=== PATIENT | female | born 1980 | race Caucasian/White ===

== ENCOUNTER 2023-11-11 06:48 | Emergency (ER) | payer OTHER, SELFPAY ==
[2023-11-11 06:49] VITALS: BP 127/86; PULSE 86; RESP 16; TEMP 36.6; O2SAT 97; BMI 30.5
[2023-11-11 07:00] VITALS: BP 136/87; PULSE 84; O2SAT 97
--- NOTE | 2023-11-11 07:09 | XR_ITS ---
PROCEDURE INFORMATION: Exam: XR Chest Exam date and time: 11/11/2023 7:54 AM Age: 43 years old Clinical indication: Cough and wheezing; Additional info: Diffuse wheezing, fevers productive cough. Congestion x 2 days TECHNIQUE: Imaging protocol: Radiologic exam of the chest. Views: 2 views. COMPARISON: No relevant prior studies available. FINDINGS: Lungs: Mild opacities in the left upper lobe Pleural spaces: Unremarkable. No pleural effusion. No pneumothorax. Heart/Mediastinum: Unremarkable. No cardiomegaly. Bones/joints: Unremarkable. IMPRESSION: Mild opacities in the left upper lobe may represent atelectasis or pneumonia Recommend followup studies to document resolution and rule out neoplastic process
--- NOTE | 2023-11-11 07:13 | ED_ITS ---
Discharge Plan Disposition Patient Disposition: Home, Self-Care Prescriptions Prescriptions: New prednisone 20 mg tablet 40 mg PO DAILY 5 Days Qty: 10 0RF amoxicillin-pot clavulanate 875-125 mg tablet 1 tab PO BID 5 Days Qty: 10 0RF Referrals Follow up/Referrals: Vivek Joshi MD [Primary Care Provider] - See instructions Activity Restrictions/Add. Instructions Additional Instructions/Restrictions: Call your family doctor to establish care for this visit to the emergency department and schedule follow-up within 48 hours to ensure improvement. If you have any worsening of your condition or any other concerning signs or symptoms, return to the emergency department or your primary care doctor for further evaluation. Augmentin twice daily for 5 days. Prednisone once daily every morning with plenty of food and water for the next 5 days as well. Clinical Impressions Clinical Impression: Acute exacerbation of chronic obstructive pulmonary disease Discharge ED Provider: Te Rose General Adult HPI General Chief complaint: Upper Respiratory Infection Stated complaint: congestion, fever, diarrhea Time Seen by Provider: 11/11/23 06:56 Mode of Arrival: Ambulatory Source of Information: Patient Limitations: No Limitations Description of Symptoms (Recalled from ER Triage Doc. by RN): pt c/o conges tion,fever,chills that started yesterday History of Present Illness HPI narrative: 43-year-old female with history of COPD still currently smoking presenting with fever and productive cough. Started 2 days prior to this visit. Has numerous sick contacts. Tmax 100 ?F. Cough productive of yellow sputum. No body aches, nausea, vomiting, but she has had associated diarrhea. No associated chest pain, or shortness of breath. She states that she came in today because she coughed all night and felt scared because it became difficult to breathe when sleeping due to phlegm buildup. Related Data Previous Rx's Medication Instructions Recorded amoxicillin 875 mg-potassium 1 tab PO BID 5 days #10 tabs 11/11/23 clavulanate 125 mg tablet prednisone 20 mg tablet 40 mg PO DAILY 5 days #10 tabs 11/11/23 Allergies Allergy/AdvReac Type Severity Reaction Status Date / Time No Known Allergies Allergy Verified 11/11/23 06:58 [facility] Disclaimer: The information contained in this section may have been updated after the patient was seen, as this information can be updated by other users. Social History Smoking Status: Current every day smoker alcohol intake: never current occupational status: employed Travel in the last 8 weeks: None ROS Obtained: Yes All systems reviewed & no additional complaints except as documented Physical Exam General General appearance: alert and in no apparent distress Head Head exam: atraumatic and normocephalic Eye Eye exam: Present normal appearance, PERRL and EOMI ENT ENT exam: Present mucous membranes moist Neck Neck exam: Present normal inspection, full ROM and trachea midline Respiratory Respiratory exam: Present wheezes (Diffuse bilateral) and prolonged expiratory phase; Absent normal lung sounds bilaterally, respiratory distress, stridor or accessory muscle use Cardiovascular Cardiovascular exam: Present regular rate and normal rhythm Abdominal Exam Abdominal exam: Present soft; Absent distention, tenderness, guarding, rebound or rigidity Extremities Exam Extremities exam: Absent edema Neurological Exam Neurological exam: Present alert, oriented X3, CN II-XII intact and normal gait; Absent motor sensory deficit Skin Skin exam: Present warm and dry; Absent diaphoresis or erythema Medical Decision Making Medical Records Medical records reviewed: Yes I reviewed the patient's medical records. Vincent Inquiry Pt receiving controlled substance: No Vincent was queried for this patient: No Vital Signs: 11/11/23 06:49 11/11/23 07:00 Temperature 97.9 F Temperature Source Oral Pulse Rate 84 Pulse Rate [Right] 86 Respiratory Rate 16 Blood Pressure 136/87 Blood Pressure [Right Arm] 127/86 Blood Pressure Mean 94 Blood Pressure Mean [Right Arm] 99 02 Sat by Pulse Oximetry 97 97 Oxygen Delivery Method Room Air Lab Data Lab Results 11/11/23 07:01: SARS-CoV-2 (PCR) Not detected, Influenza A Untype (PCR) Not detected, Influenza Type B (PCR) Not detected Orders (Tests/Meds): ED MEDICATIONS Discontinued Medications Generic Name Dose Route Start Last Admin Trade Name Freq PRN Reason Stop Dose Admin Albuterol/Ipratropium 6 ml 11/11/23 07:09 11/11/23 07:37 Ipratropium/Albuterol 3 Ml Neb IH 11/11/23 07:10 6 ml ONCE ONE Administration Amoxicillin/Clavulanate Potassium 1 each 11/11/23 07:10 11/11/23 07:35 Amoxicillin/Clavulanate Potassium 875/125mg Tablet PO 11/11/23 07:11 1 each ONCE ONE Administration Dexamethasone 10 mg 11/11/23 07:09 11/11/23 07:34 Dexamethasone 4mg Tablet PO 11/11/23 07:10 10 mg ONCE ONE Administration ORDERS Category Date Time Status CXR 2 view (NOT portable) [XR chest 2V] Stat Exams 11/11/23 07:09 Taken Rapid PCR Covid and Flu A/B Stat Lab 11/11/23 07:01 Completed Medical Decision Narrative: 43-year-old female with history of COPD still currently smoking presenting with fever and productive cough. Started 2 days prior to this visit. Has numerous sick contacts. Tmax 100 ?F. Cough productive of yellow sputum. No body aches, nausea, vomiting, but she has had associated diarrhea. No associated chest pain, or shortness of breath. She states that she came in today because she coughed all night and felt scared because it became difficult to breathe when sleeping due to phlegm buildup. History was obtained via conversation with patient. On arrival, patient hemodynamically stable, alert, oriented x4, appropriate, GCS 15, moving all extremities spontaneously, pupils equal and reactive to light. Full physical exam performed and significant for well-appearing woman in no acute distress. Nontachypneic, nontachycardic. Saturating appropriately on room air. She does have diffuse, bilateral scattered wheezes without focal breath sounds. Cardiac exam within normal limits. Prolonged expiratory phase. Differential includes COPD exacerbation, bronchitis, pneumonia, among others. Patient was given DuoNeb, Decadron, Augmentin for symptomatic management and correction of underlying abnormalities. Workup independently interpreted and significant for negative COVID and flu. No acute consolidative airspace disease on chest x-ray. Patient does have bronchial wall thickening and inflammation concerning for bronchitis. See radiology read for full review of final results. On reevaluation, patient resting more comfortably in bed. Given patient presentation, workup, history, this most likely represents COPD exacerbation. Because patient meets gold criteria, discharged with Augmentin. Also given st eroid for home-going. Because patient at baseline without signs or symptoms of clinical decompensation, deemed appropriate for discharge. Results were relayed to patient who voiced understanding and were agreeable to outpatient management and follow up. At the time of discharge the patient was hemodynamically stable, tolerating PO, and mobilizing appropriately. Critical Care Critical Care Time Critical Care Time: No
[2023-11-11 07:14] LABS: Coronavirus 19, PCR Not Detected (NotDetected); Influenza A, PCR Not Detected (NotDetected); Influenza B, PCR Not Detected (NotDetected)
[2023-11-11] MEDS: DEXAMETHASONE 4MG TABLET 10 MG PO (07:34)
[2023-11-11] MEDS: AMOXICILLIN/CLAVULANATE POTASSIUM 875/125MG TABLET 1 EACH PO (07:35)
[2023-11-11] MEDS: IPRATROPIUM/ALBUTEROL 3 ML NEB 6 ML IH (07:37)
--- NOTE | 2023-11-11 07:40 | PC.NURSE ---
I rounded on the pt. Pt has no new complaints, I took her a blanket.
[2023-11-11 08:29] VITALS: BP 128/75; PULSE 107; RESP 18; TEMP 37
== END 2023-11-11 08:31 | disposition home or self-care (01) ==
PROVIDERS: Emergency Provider Emergency Medicine; PCP Emergency Medicine
DX: J44.1 Chronic obstructive pulmonary disease with (acute) exacerbation (principal); F17.210 Nicotine dependence, cigarettes, uncomplicated; R05.9 Cough, unspecified; R19.7 Diarrhea, unspecified
CPT/HCPCS: 71046; 87636; 99284

== ENCOUNTER 2024-07-18 19:17 | Emergency (ER) | payer OTHER, SELFPAY ==
[2024-07-18] VITALS (8 sets, daily range): BP systolic 116–126; BP diastolic 69–89; PULSE 47–71; RESP 17–18; TEMP 36.6–36.8; O2SAT 96–99; BMI 30.4
--- NOTE | 2024-07-18 19:20 | ED_ITS ---
Discharge Plan Disposition Patient Disposition: Home, Self-Care Condition: Good Prescriptions Prescriptions: No Action prednisone 20 mg tablet 40 mg PO DAILY 5 Days Qty: 10 0RF amoxicillin-pot clavulanate 875-125 mg tablet 1 tab PO BID 5 Days Qty: 10 0RF Referrals Follow up/Referrals: Vivek Joshi MD [Primary Care Provider] - See instructions Activity Restrictions/Add. Instructions Additional Instructions/Restrictions: Follow-up with your PCP next week for recheck. Follow-up sooner for no improvement or worsening signs or symptoms as needed or return to the ER. Clinical Impressions Clinical Impression: Headache Qualifiers: Headache type: unspecified Headache chronicity pattern: chronic headache I ntractability: not intractable Qualified Code(s): R51.9 - Headache, unspecified Print Language Print Language: Israeli Discharge ED Provider: Te Rose General Adult HPI <VIVIAN Penaloza - Last Filed: 07/18/24 23:02> General Chief complaint: Headache Stated complaint: BAER Time Seen by Provider: 07/18/24 19:20 History of Present Illness HPI narrative: Patient presents for evaluation of headache. Patient states that she has had a headache at the top of her head for 3 weeks. She has been recently diagnosed with cervical dystonia and is currently undergoing workup with the neurosurgeon apparently in [place]. However patient also reports that she has had a 3- week dull headache that has not been responsive to any home remedies hence she presented for evaluation. She denies any nausea vomiting visual changes are a stressor trauma. She denies chest pain fever chills hemoptysis hematochezia melena nausea vomit diarrhea. Related Data Previous Rx's ?Medication ?Instructions ?Recorded amoxicillin 875 mg-potassium 1 tab PO BID 5 days #10 tabs 11/11/23 clavulanate 125 mg tablet prednisone 20 mg tablet 40 mg (2 x 20 mg) PO DAILY 5 days 11/11/23 #10 tabs Allergies Allergy/AdvReac Type Severity Reaction Status Date / Time No Known Allergies Allergy Verified 11/11/23 06:58 PFS <VIVIAN Penaloza - Last Filed: 07/18/24 23:02> [facility] Disclaimer: The information contained in this section may have been updated after the patient was seen, as this information can be updated by other users. Social History (Updated 11/11/23 @ 08:24 by Te Rose MD) Smoking Status: Current every day smoker alcohol intake: never current occupational status: employed Travel in the last 8 weeks: None <VIVIAN Penaloza - Last Filed: 07/18/24 23:02> ROS Obtained: Yes Systems reviewed as appropriate & no additional complaints except as documented Physical Exam <VIVIAN Penaloza - Last Filed: 07/18/24 23:02> General General appearance: alert and in no apparent distress Respiratory Respiratory exam: Present normal lung sounds bilaterally Cardiovascular Cardiovascular exam: Present regular rate and normal rhythm Neurological Exam Neurological exam: Present alert, oriented X3, CN II-XII intact, normal gait and motor sensory deficit Medical Decision Making <VIVIAN Penaloza - Last Filed: 07/18/24 23:02> Medical Records Medical records reviewed: Yes I reviewed the patient's medical records. Screening: Per USPSTF and CDC recommendations, given the prevalence of disease in our region, it is our hospital?s policy to screen for HIV and viral Hepatitis for all patients aged 18 and over and those with ongoing risk factors. Vincent Inquiry Pt receiving controlled substance: No Vital Signs: 07/18/24 19:18 07/18/24 20:00 07/18/24 20:31 Temperature 97.9 F Temperature Source Oral Pulse Rate 64 55 L Pulse Rate [Right Radial] 70 Respiratory Rate 18 Blood Pressure 118/81 126/78 Blood Pressure [Right Arm] 119/89 Blood Pressure Mean [Right Arm] 99 Blood Pressure Source [Right Arm] Automatic Cuff Blood Pressure Position Blood Pressure Position [Right Arm] Supine 02 Sat by Pulse Oximetry 97 98 98 Oxygen Delivery Method Room Air 07/18/24 21:00 07/18/24 21:36 07/18/24 21:45 Temperature Temperature Source Pulse Rate 63 71 47 L Pulse Rate [Right Radial] Respiratory Rate Blood Pressure 126/69 116/83 Blood Pressure [Right Arm] Blood Pressure Mean [Right Arm] Blood Pressure Source [Right Arm] Blood Pressure Position Blood Pressure Position [Right Arm] 02 Sat by Pulse Oximetry 97 98 96 Oxygen Delivery Method 07/18/24 22:01 07/18/24 22:31 Temperature 98.2 F Temperature Source Oral Pulse Rate 66 66 Pulse Rate [Right Radial] Respiratory Rate 17 Blood Pressure 116/83 116/83 Blood Pressure [Right Arm] Blood Pressure Mean [Right Arm] Blood Pressure Source [Right Arm] Blood Pressure Position Sitting Blood Pressure Position [Right Arm] 02 Sat by Pulse Oximetry 97 Oxygen Delivery Method Room Air Lab Data Lab results reviewed: Yes I reviewed the patient's lab results. Lab Results 07/18/24 19:40: WBC 6.8, RBC 4.59, Hgb 14.1, Hct 40.0, MCV 87.2, MCH 30.7, MCHC 35.2, RDW 13.9, Plt Count 349, MPV 8.0, Neut % (Auto) 49.4, Lymph % (Auto) 39.8, [place] % (Auto) 7.2, Eos % (Auto) 2.7, Baso % (Auto) 0.8, Neut # (Auto) 3.4, Lymph # (Auto) 2.7, [place] # (Auto) 0.5, Eos # (Auto) 0.2, Baso # (Auto) 0.1, ESR 15, Sodium 139, Potassium 3.9, Chloride 109 H, Carbon Dioxide 23, Anion Gap 10.9, BUN 13, Creatinine 0.70, Estimated Creat Clear 153, Estimated GFR 91, Est GFR ( Amer) 111, Glucose 99, Calcium 8.8, Magnesium 1.9, Total Bilirubin 0.8, AST 17, ALT 15, Alkaline Phosphatase 76, Total Creatine Kinase 72, C-Reactive Protein 1.9, Total Protein 7.0, Albumin 3.9, Globulin 3.1, Albumin/Globulin Ratio 1.3, TSH 3.19, Free T4 Index 2.4 L, Thyroxine (T4) 7.4, T3 Uptake 33 07/18/24 20:39: Urine Color Yellow, Urine Appearance Clear, Urine pH 6.0, Ur Specific [place] >= 1.030, Urine Protein Negative, Urine Glucose (UA) Negative, Urine Ketones Negative, Urine Blood Negative, Urine Nitrate Negative, Urine Bilirubin Negative, Urine Urobilinogen 0.2, Ur Leukocyte Esterase Negative, Urine RBC Occasional, Urine WBC 3-5, Ur Squamous Epith Cells 3-5, Urine Bacteria Trace, Urine Mucus 1+, Urine HCG, Qual Negative 07/18/24 19:40 07/18/24 19:40 Orders (Tests/Meds): ED MEDICATIONS Discontinued Medications Generic Name Dose Route Start Last Admin Trade Name Zak PRN Reason Stop Dose Admin Acetaminophen 1,000 mg 07/18/24 20:19 07/18/24 20:28 Acetaminophen 1,000mg/100ml Vial IV 07/18/24 20:20 1,000 mg ONCE ONE Administration Droperidol 2.5 mg 07/18/24 20:19 07/18/24 20:28 Droperidol 5mg/2ml Vial IV 07/18/24 20:20 2.5 mg ONCE ONE Administration Iopamidol 80 ml 07/18/24 21:38 07/18/24 21:38 Iopamidol-370 (76%);100ml Bottle IV 07/18/24 21:39 80 ml ONCE ONE Administration Sodium Chloride 50 ml 07/18/24 21:38 07/18/24 21:38 0.9 % Sodium Chloride 50 Ml Vial IV 07/18/24 21:39 50 ml ONCE ONE Administration Sodium Chloride 10 ml 07/18/24 21:38 07/18/24 21:38 Sodium Chloride 0.9% 10ml Syr (Rad Only) IV 08/17/24 21:37 10 ml NEEDED PRN Administration Maintain IV Site ORDERS Category Date Time Status CT angio head Stat Cat Scan 07/18/24 20:[address] angio neck Stat Cat Scan 07/18/24 20:[address] head/brain wo con Stat Cat Scan 07/18/24 20:52 Completed CBC w/Auto Diff [Complete Blood Count Auto Diff] Stat Lab 07/18/24 19:40 Completed CK [Creatine Kinase] Stat Lab 07/18/24 19:40 Completed CMP [Comprehensive Metabolic Panel] Stat Lab 07/18/24 19:40 Completed CRP [C-Reactive Protein] Stat Lab 07/18/24 19:40 Completed ESR [Erythrocyte Sedimentation Rate] Stat Lab 07/18/24 19:40 Completed Magnesium Stat Lab 07/18/24 19:40 Completed Thyroid Panel Stat Lab 07/18/24 19:40 Completed UA [Urinalysis and Microscopic] Stat Lab 07/18/24 20:39 Completed Urine , HCG Qual. Stat Lab 07/18/24 20:39 Completed Medical Decision Narrative: In summary patient is a 44-year-old female who presents to the emergency department for evaluation of chronic headache. Patient is hemodynamically stable upon arrival, febrile. Physical exam is remarkable for an headache at her vertex but no palpable pain on exam no nuchal rigidity no meningeal signs pupils equal round reactive to light accommodation without icterus. Glascow coma score is 15. Patient is awake alert and oriented and retains capacity for decision making.. Differential diagnosis includes migraine versus space- occupying lesion versus intercranial abnormality etc. Initial workup will be conducted with hematologic labs CT scan of the head without contrast CTA of the head and neck.. Initial interventions include fluid bolus Tylenol droperidol. Initial workup reviewed by me her hematologic labs are normal and nonactionable. My informal interpretation of her imaging shows no acute intracranial processes and no large vessel occlusion or stenosis prior to radiology read.. Upon repeat evaluation patient had complete resolution of her headache. Given this patient is appropriate for discharge with instructions to go to initiate Tylenol and Zofran at the start of her headache and follow-up with her PCP for further testing as necessary. <Te Rose MD - Last Filed: 07/18/24 23:38> Vital Signs: 07/18/24 19:18 07/18/24 20:00 07/18/24 20:31 Temperature 97.9 F Temperature Source Oral Pulse Rate 64 55 L Pulse Rate [Right Radial] 70 Respiratory Rate 18 Blood Pressure 118/81 126/78 Blood Pressure [Right Arm] 119/89 Blood Pressure Mean [Right Arm] 99 Blood Pressure Source [Right Arm] Automatic Cuff Blood Pressure Position Blood Pressure Position [Right Arm] Supine 02 Sat by Pulse Oximetry 97 98 98 Oxygen Delivery Method Room Air 07/18/24 21:00 07/18/24 21:36 07/18/24 21:45 Temperature Temperature Source Pulse Rate 63 71 47 L Pulse Rate [Right Radial] Respiratory Rate Blood Pressure 126/69 116/83 Blood Pressure [Right Arm] Blood Pressure Mean [Right Arm] Blood Pressure Source [Right Arm] Blood Pressure Position Blood Pressure Position [Right Arm] 02 Sat by Pulse Oximetry 97 98 96 Oxygen Delivery Method 07/18/24 22:01 07/18/24 22:31 Temperature 98.2 F Temperature Source Oral Pulse Rate 66 66 Pulse Rate [Right Radial] Respiratory Rate 17 Blood Pressure 116/83 116/83 Blood Pressure [Right Arm] Blood Pressure Mean [Right Arm] Blood Pressure Source [Right Arm] Blood Pressure Position Sitting Blood Pressure Position [Right Arm] 02 Sat by Pulse Oximetry 97 Oxygen Delivery Method Room Air Lab Data Lab Results 07/18/24 19:40: WBC 6.8, RBC 4.59, Hgb 14.1, Hct 40.0, MCV 87.2, MCH 30.7, MCHC 35.2, RDW 13.9, Plt Count 349, MPV 8.0, Neut % (Auto) 49.4, Lymph % (Auto) 39.8, [place] % (Auto) 7.2, Eos % (Auto) 2.7, Baso % (Auto) 0.8, Neut # (Auto) 3.4, Lymph # (Auto) 2.7, [place] # (Auto) 0.5, Eos # (Auto) 0.2, Baso # (Auto) 0.1, ESR 15, Sodium 139, Potassium 3.9, Chloride 109 H, Carbon Dioxide 23, Anion Gap 10.9, BUN 13, Creatinine 0.70, Estimated Creat Clear 153, Estimated GFR 91, Est GFR ( Amer) 111, Glucose 99, Calcium 8.8, Magnesium 1.9, Total Bilirubin 0.8, AST 17, ALT 15, Alkaline Phosphatase 76, Total Creatine Kinase 72, C-Reactive Protein 1.9, Total Protein 7.0, Albumin 3.9, Globulin 3.1, Albumin/Globulin Ratio 1.3, TSH 3.19, Free T4 Index 2.4 L, Thyroxine (T4) 7.4, T3 Uptake 33 07/18/24 20:39: Urine Color Yellow, Urine Appearance Clear, Urine pH 6.0, Ur Specific [place] >= 1.030, Urine Protein Negative, Urine Glucose (UA) Negative, Urine Ketones Negative, Urine Blood Negative, Urine Nitrate Negative, Urine Bilirubin Negative, Urine Urobilinogen 0.2, Ur Leukocyte Esterase Negative, Urine RBC Occasional, Urine WBC 3-5, Ur Squamous Epith Cells 3-5, Urine Bacteria Trace, Urine Mucus 1+, Urine HCG, Qual Negative Orders (Tests/Meds): ED MEDICATIONS Discontinued Medications Generic Name Dose Route Start Last Admin Trade Name Freq PRN Reason Stop Dose Admin Acetaminophen 1,000 mg 07/18/24 20:19 07/18/24 20:28 Acetaminophen 1,000mg/100ml Vial IV 07/18/24 20:20 1,000 mg ONCE ONE Administration Droperidol 2.5 mg 07/18/24 20:19 07/18/24 20:28 Droperidol 5mg/2ml Vial IV 07/18/24 20:20 2.5 mg ONCE ONE Administration Iopamidol 80 ml 07/18/24 21:38 07/18/24 21:38 Iopamidol-370 (76%);100ml Bottle IV 07/18/24 21:39 80 ml ONCE ONE Administration Sodium Chloride 50 ml 07/18/24 21:38 07/18/24 21:38 0.9 % Sodium Chloride 50 Ml Vial IV 07/18/24 21:39 50 ml ONCE ONE Administration Sodium Chloride 10 ml 07/18/24 21:38 07/18/24 21:38 Sodium Chloride 0.9% 10ml Syr (Rad Only) IV 08/17/24 21:37 10 ml NEEDED PRN Administration Maintain IV Site ORDERS Category Date Time Status CT angio head Stat Cat Scan 07/18/24 20:[address] angio neck Stat Cat Scan 07/18/24 20:[address] head/brain wo con Stat Cat Scan 07/18/24 20:52 Completed CBC w/Auto Diff [Complete Blood Count Auto Diff] Stat Lab 07/18/24 19:40 Completed CK [Creatine Kinase] Stat Lab 07/18/24 19:40 Completed CMP [Comprehensive Metabolic Panel] Stat Lab 07/18/24 19:40 Completed CRP [C-Reactive Protein] Stat Lab 07/18/24 19:40 Completed ESR [Erythrocyte Sedimentation Rate] Stat Lab 07/18/24 19:40 Completed Magnesium Stat Lab 07/18/24 19:40 Completed Thyroid Panel Stat Lab 07/18/24 19:40 Completed UA [Urinalysis and Microscopic] Stat Lab 07/18/24 20:39 Completed Urine , HCG Qual. Stat Lab 07/18/24 20:39 Completed ECG Data Tracing #1: I reviewed this ECG and interpreted as documented below: (Sinus bradycardia 51 beats a minute with [place] 163, QRS 85, QTc 437. [place] normal. No acute ischemic change) Medical Decision Narrative: In summary patient is a 44-year-old female who presents to the emergency department for evaluation of chronic headache. Patient is hemodynamically stable upon arrival, febrile. Physical exam is remarkable for an headache at her vertex but no palpable pain on exam no nuchal rigidity no meningeal signs pupils equal round reactive to light accommodation without icterus. Glascow coma score is 15. Patient is awake alert and oriented and retains capacity for decision making.. Differential diagnosis includes migraine versus space- occupying lesion versus intercranial abnormality etc. Initial workup will be conducted with hematologic labs CT scan of the head without contrast CTA of the head and neck.. Initial interventions include fluid bolus Tylenol droperidol. Initial workup reviewed by me her hematologic labs are normal and nonactionable. My informal interpretation of her imaging shows no acute intracranial processes and no large vessel occlusion or stenosis prior to radiology read.. Upon repeat evaluation patient had complete resolution of her headache. Given this patient is appropriate for discharge with instructions to go to initiate Tylenol and Zofran at the start of her headache and follow-up with her PCP for further testing as necessary. I was consulted by the [facility], and we discussed the complexity of the problems being addressed. I approved the treatment and management plan for this patient's care in the Emergency Department, thus performing a substantive portion of the medical decision making. Te Rose MD Critical Care <VIVIAN Penaloza - Last Filed: 07/18/24 23:02> Critical Care Time Critical Care Time: No
--- NOTE | 2024-07-18 20:19 | CT_ITS ---
PROCEDURE INFORMATION: Exam: CTA Head With Contrast, Arteriography Exam date and time: 07/18/2024 9:31 PM Age: 44 years old Clinical indication: Pain; Headache; Additional info: Headache, tremor TECHNIQUE: Imaging protocol: Computed tomographic angiography of the head with contrast. Exam focused on the arteries. 3D rendering (Not supervised by radiologist): MIP and/or 3D reconstructed images were created by the technologist. Radiation optimization: All CT scans at this facility use at least one of these dose optimization techniques: automated exposure control; mA and/or kV adjustment per patient size (includes targeted exams where dose is matched to clinical indication); or iterative reconstruction. Contrast material: ISOVUE; Contrast volume: 80 ml; Contrast route: INTRAVENOUS (IV); COMPARISON: CT HEAD/BRAIN WO CON 07/18/2024 9:29 PM FINDINGS: ANTERIOR CIRCULATION: Right internal carotid artery: Intracranial segment is patent with no significant stenosis. No aneurysm. Right middle cerebral artery: No occlusion or significant stenosis. No aneurysm. Right anterior cerebral artery: No occlusion or significant stenosis. No aneurysm. Left internal carotid artery: Intracranial segment is patent with no significant stenosis. No aneurysm. Left middle cerebral artery: No occlusion or significant stenosis. No aneurysm. Left anterior cerebral artery: No occlusion or significant stenosis. No aneurysm. POSTERIOR CIRCULATION: Right vertebral artery: No occlusion or significant stenosis. No aneurysm. Left vertebral artery: No occlusion or significant stenosis. No aneurysm. Basilar artery: No occlusion or significant stenosis. No aneurysm. Right posterior cerebral artery: No occlusion or significant stenosis. No aneurysm. Left posterior cerebral artery: No occlusion or significant stenosis. No aneurysm. Brain: No definite mass, mass effect, or midline shift. Cerebral ventricles: No ventriculomegaly. Bones/joints: Unremarkable. No acute fracture. Soft tissues: Unremarkable. IMPRESSION: No large vessel stenosis or occlusion.
--- NOTE | 2024-07-18 20:19 | CT_ITS ---
PROCEDURE INFORMATION: Exam: CTA Neck With Contrast Exam date and time: 07/18/2024 9:31 PM Age: 44 years old Clinical indication: Pain; Headache; Additional info: Headache, tremor TECHNIQUE: Imaging protocol: Computed tomographic angiography of the neck with contrast. Exam focused on the cervical segments of the vasculature. 3D rendering (Not supervised by radiologist): MIP and/or 3D reconstructed images were created by the technologist. Radiation optimization: All CT scans at this facility use at least one of these dose optimization techniques: automated exposure control; mA and/or kV adjustment per patient size (includes targeted exams where dose is matched to clinical indication); or iterative reconstruction. Contrast material: ISOVUE; Contrast volume: 80 ml; Contrast route: INTRAVENOUS (IV); COMPARISON: CT ANGIO HEAD 07/18/2024 9:31 PM FINDINGS: Right common carotid artery: No stenosis. No dissection or occlusion. Right internal carotid artery: No stenosis of the extracranial segment. No dissection or occlusion. Right external carotid artery: No occlusion or stenosis of the origin. Left common carotid artery: No stenosis. No dissection or occlusion. Left internal carotid artery: No stenosis of the extracranial segment. No dissection or occlusion. Left external carotid artery: No occlusion or stenosis of the origin. Right vertebral artery: No stenosis. No dissection or occlusion. Left vertebral artery: No stenosis. No dissection or occlusion. Soft tissues: Normal. No significant soft tissue swelling. Bones/joints: No acute fracture. IMPRESSION: No stenosis or occlusion. REFERENCES: NASCET CRITERIA. The degree of stenosis in the cervical segment of the internal carotid artery is based on NASCET criteria. Normal is no stenosis. Mild is less than 50% stenosis. Moderate is 50-69% stenosis. Severe is 70% to 99% stenosis. Total occlusion is no detectable patent lumen.
[2024-07-18] MEDS: droPERidol 5MG/2ML VIAL 2.5 MG IV (20:28)
[2024-07-18] MEDS: ACETAMINOPHEN 1,000MG/100ML VIAL 1000 MG IV (20:28)
--- NOTE | 2024-07-18 20:31 | ECG_ITS ---
APPROVED REPORT Exam: Resting ECG HR:51 bpm ECG Measurements Heart Rate 51 AXES WY 163 P 68 QRSd 85 QRS 70 QT 460 T 70 QTc 437 Conclusion Sinus bradycardia Electronically signed by : SAMIR PEREZ, 07/19/2024 15:07:29
[2024-07-18 20:41] LABS: Basophils # 0.1 K/mm3 (0-0.2); Basophils % 0.8 % (0.1-2.0); Eosinophils # 0.2 K/mm3 (0.0-0.4); Eosinophils % 2.7 % (0.1-12.0); Hemoglobin 14.1 g/dL (12.2-16.2); Lymphocytes # 2.7 K/mm3 (0.7-4.5); Lymphocytes % 39.8 % (10-50); Mean Corpuscular HGB Conc 35.2 g/dL (31.8-35.4); Mean Corpuscular Hemoglobin 30.7 pg (27.0-31.2); Mean Corpuscular Volume 87.2 fl (81-99); Monocytes # 0.5 K/mm3 (0.1-1.0); Monocytes % 7.2 % (1.7-9.3); Neutrophils # 3.4 K/mm3 (1.8-7.8); Neutrophils % 49.4 % (37.0-80.0); Platelet Count 349 K/mm3 (142-424); Red Blood Count 4.59 M/mm3 (4.20-5.40); Red Cell Distribution Width 13.9 % (11.5-17.5); White Blood Count 6.8 K/mm3 (4.8-10.8)
[2024-07-18 20:43] LABS: Microscopic, Urine URINE MICROSCOPIC (MICROSCOPIC)
[2024-07-18 20:43] LABS: Creatine Kinase 72 U/L (30-135)
[2024-07-18 20:46] LABS: Albumin Level 3.9 g/dl (3.5-5.0); Chloride 109 mmol/L (98-107); Potassium 3.9 mmoL/L (3.5-5.1); Sodium 139 mmol/L (136-145)
[2024-07-18 20:48] LABS: C-Reactive Protein 1.9 mg/L (0-4)
[2024-07-18 20:49] LABS: Alanine Aminotransferase 15 U/L (12-78); Albumin/Globulin Ratio 1.3 (1.1-1.8); Alkaline Phosphatase 76 U/L (38-126); Aspartate Amino Transferase 17 U/L (14-36); Bilirubin,Total 0.8 mg/dl (0.2-1.3); Blood Urea Nitrogen 13 mg/dl (7-17); Calcium 8.8 mg/dl (8.4-10.2); Creatinine Clearance Estimated 153 mL/min (50-200); Estimated Glomerular Filt Rate 91 ml/min (>60); GFR (African American) 111 ML/MIN (>60); Globulin 3.1 g/dL (1.3-3.2); Glucose 99 mg/dl (74-100)
[2024-07-18 20:50] LABS: Magnesium 1.9 mg/dl (1.6-2.3)
--- NOTE | 2024-07-18 20:52 | CT_ITS ---
PROCEDURE INFORMATION: Exam: CT Head Without Contrast Exam date and time: 07/18/2024 9:29 PM Age: 44 years old Clinical indication: Pain; Headache; Additional info: Headache tremors TECHNIQUE: Imaging protocol: Computed tomography of the head without contrast. Radiation optimization: All CT scans at this facility use at least one of these dose optimization techniques: automated exposure control; mA and/or kV adjustment per patient size (includes targeted exams where dose is matched to clinical indication); or iterative reconstruction. COMPARISON: CT HEAD/BRAIN WO CON 07/18/2024 9:29 PM FINDINGS: Brain: Normal. No hemorrhage. Unremarkable white matter. No mass effect. Cerebral ventricles: No ventriculomegaly. Paranasal sinuses: Mucous retention cyst right maxillary sinus measures 1 cm. Mastoid air cells: Visualized mastoid air cells are well aerated. Bones: Unremarkable. No acute fracture. Soft tissues: Unremarkable. IMPRESSION: 1. No acute intracranial process is identified. 2. Small mucous retention cyst right maxillary sinus.
[2024-07-18 20:54] LABS: Appearance,Urine CLEAR (Clear); Bilirubin,Urine Negative (Negative); Blood, Urine Negative (Negative); Color,Urine YELLOW (Yellow); Glucose,Urine (UA) Negative (Negative); Ketones,Urine Negative (Negative); Leukocyte Esterase,Urine Negative (Negative); Nitrate,Urine Negative (Negative); Protein,Urine Negative (Negative); Specific Gravity, Urine >= 1.030 (1.005-1.030); Urobilinogen,Urine 0.2 EU/dl (0.2)
[2024-07-18 20:55] LABS: Urine Pregnancy, HCG Qual. Negative (Negative)
[2024-07-18 20:59] LABS: Anion Gap 10.9 mEq/L (5-15); Carbon Dioxide 23 mmol/L (22.0-30.0)
[2024-07-18 21:05] LABS: Erythrocyte Sedimentation Rate 15 mm/hr (0-20); Free Thyroxine Index 2.4 ug/dL (5.93-13.13); T4 (Thyroxine) 7.4 ug/dl (5.53-11.0); Triiodothryronine (T3) Uptake 33 % (23.5-40.5)
[2024-07-18 21:06] LABS: Mucus,Urine 1+ /lpf; RBC,Urine Occasional #/hpf (0-3)
[2024-07-18 21:07] LABS: Bacteria,Urine Trace /lpf
[2024-07-18 21:18] LABS: Thyroid Stimulating Hormone 3.19 uIU/mL (0.465-4.68)
[2024-07-18] MEDS: IOPAMIDOL-370 (76%);100ML BOTTLE 80 ML IV (21:38)
[2024-07-18] MEDS: SODIUM CHLORIDE 0.9% 10ML SYR (RAD ONLY) 10 ML IV (21:38)
[2024-07-18] MEDS: 0.9 % SODIUM CHLORIDE 50 ML VIAL IV (21:38)
== END 2024-07-18 22:31 | disposition home or self-care (01) ==
PROVIDERS: Physician Assistant; Emergency Provider Emergency Medicine; PCP Emergency Medicine
DX: R51.9 Headache, unspecified (principal)
CPT/HCPCS: 70450; 70496; 70498; 80050; 80053; 81001; 81025; 82550; 83735; 84436; 84443; 84479; 85025; 85651; 86140; 93005; 96374; 96375; 99285; J0131; J1790; Q9967

== ENCOUNTER 2025-08-16 05:33 | Emergency (ER) | payer BC, OTHER, SELFPAY ==
--- OUTSIDE RECORDS SUMMARY | 2025-08-07 22:37 | XMS_ITS | Continuity of Care Document ---
Author Organization [facility] Phone Care Team Providers Care Package Line Relief Operator Name Role Phone HIRENHELADIODALI Finley Unavailable DALI HERRMANN Primary Care JOHNSON MARISCAL Admitting JOHNSON MARISCAL Primary Attending ALLERGIES AND ADVERSE REACTIONS ALLERGIES AND ADVERSE REACTIONS Code System Allergy Substance Adverse Reaction Date Reaction (Severity) Comment Status Reported By Updated By No Known Allergies [id number] on April 24, 2024 10:05:13 AM [facility] FAMILY HISTORY RELATION: Father Status: Cause of : Unknown Age at : Unknown SNOMED-CT Diagnosis Age At Onset [id number] Diabetes mellitus RELATION: Mother Status: Cause of : Unknown Age at : Unknown SNOMED-CT Diagnosis Age At Onset Information not available MEDICATIONS HOME MEDICATIONS Status RXNORM NDC Medication Dose Route Frequency Dates Comments Reported By Updated By Drug Treatment Unknown DISCHARGE MEDICATIONS Status RXNORM NDC Medication Dose Route Frequency Dates Dis pense Data Comments Physician Updated By No Discharge Medication Info rmation Available INPATIENT MEDICATIONS Status RXNORM NDC Medication Dose Route Frequency Rat e Quantity Dates Indication Dispense Data Comments Physician Updated By No Inpatient Medication Info rmation Available SOCIAL HISTORY SOCIAL HISTORY - Smoking Status SNOMED-CT Social History Element Description Effective Dates Offered Cessation Comment Updated By [id number] Historical Tobacco smoking status Current Every Day Smoker 1ppd [id number] on June 04, 2014 11:42:22 AM [facility] SOCIAL HISTORY - Gender Sex: Female SOCIAL HISTORY - Status : status i nformation is not available Intention in Next Year: intention information is not available SOCIAL HISTORY - Assessments Code System Description Status Date Value of Assessment Updated By Comment Assessment Information is no t available SOCIAL HISTORY - One[place] Affiliation One[place] information is not av ailable SOCIAL HISTORY - Legal Sex Legal Sex information is not available SOCIAL HISTORY - Sexual Behavior Sexual Orientation Gender Identity SNOMED-CT Description SNO MED -CT Description Activity Level No of Partners Partner Type UpdatedBy Information is not available SOCIAL HISTORY - Occupation Occupation information is no t available HEALTH CONCERNS Problems Concern Status Health Concern problem infor mation not available. Smoking Status Status Years Used Consumed packs p er day Health Concern smoking histo ry information not available. Family History Concern Status Health Concern family histor y information not available. ENCOUNTERS ENCOUNTER INFORMATION Reason for Visit NAUSEA / DIARRHEA Admission August 06, 2025 12 :24:00 AM [place] [id number] [facility] [id number] Discharge August 06, 2025 1:21:00 AM [facility] LEFT AGAINST ADVICE OR DISCONTINUED ENCOUNTER DIAGNOSES Notes information is not cody ilable. Code System Diagnosis Onset Date Diagnosis information is not available. ABSTRACT DIAGNOSES Code System Diagnosis Updated By Abatement Date Z53.20 ICD10 PROCEDURE AND TR EATMENT NOT CARRIED OUT BECAUSE OF PATIENT'S DECISION FOR UNSPECIFIED REASONS [id number] on August 08, 2025 3:36:57 AM [facility] Z53.20 ICD10 PROCEDURE AND TR EATMENT NOT CARRIED OUT BECAUSE OF PATIENT'S DECISION FOR UNSPECIFIED REASONS [id number] on August 08, 2025 3:36:57 AM [facility] CARE TEAM Care Package Line Relief Operator Role DALI HERRMANN Referring DALI SOMalia Primary Care JOHNSON MARISCAL Admitting JOHNSON MARISCAL Primary Attending CARE TEAM CARE portable sawmill operator Role on Team Location Telecom Status Start Date End Serge e Updated By ALIZE MCNALLY Referring normal August 06, 2025 1:03:24 AM [facility] August 06, 2025 1:21:00 AM [facility] [id number] on August 06, 2025 1:03:24 AM [facility] LOIDAPATRICA TAVAREZ Attending normal August 06, 2025 1:03:24 AM [facility] August 06, 2025 1:21:00 AM [facility] [id number] on August 06, 2025 1:03:24 AM [facility] LOIDAPATRICA TAVAREZ Admitting normal August 06, 2025 1:03:24 AM [facility] August 06, 2025 1:21:00 AM [facility] [id number] on August 06, 2025 1:03:24 AM [facility] ALIZE MCNALLY PCP normal August 06, 2025 12:24:54 AM [facility] August 06, 2025 1:21:00 AM [facility] [id number] on August 06, 2025 1:03:24 AM [facility]
[2025-08-16 05:41] VITALS: BP 128/87; PULSE 95; RESP 18; TEMP 37.2; O2SAT 98; BMI 31.0
--- NOTE | 2025-08-16 05:45 | XR_ITS ---
PROCEDURE INFORMATION: Exam: XR Left Hip Exam date and time: 08/16/2025 5:48 AM Age: 45 years old Clinical indication: Injury or trauma; Fall; Blunt trauma (contusions or hematomas); Left; Hip; Additional info: Fall 14h ago, arthritis, pain, ambulatory TECHNIQUE: Imaging protocol: Radiologic exam of the left hip. Views: 2 or 3 views hip with pelvis when performed. COMPARISON: No relevant prior studies available. FINDINGS: Bones/joints: There are no fractures or dislocations in the pelvis. Sacroiliac joints and pubic symphysis are intact. The left femoral head is seated in the acetabular fossa. There are no fractures or dislocations in the left hip. Soft tissues: Unremarkable. IMPRESSION: No evidence of osseous injury to the left hip and pelvis.
[2025-08-16 05:49] VITALS: BP 128/73; PULSE 83; RESP 18; TEMP 37.1; O2SAT 98
[2025-08-16 06:31] VITALS: BP 164/88; PULSE 68; O2SAT 96
--- NOTE | 2025-08-16 06:41 | HMH.EDGENADL ---
Discharge Plan Disposition Patient Disposition: Home, Self-Care Prescriptions Prescriptions: No Action prednisone 20 mg tablet 40 mg PO DAILY 5 Days Qty: 10 0RF amoxicillin-pot clavulanate 875-125 mg tablet 1 tab PO BID 5 Days Qty: 10 0RF Referrals Follow up/Referrals: Vivek Joshi MD [Primary Care Provider, Medical] - See instructions Activity Restrictions/Add. Instructions Additional Instructions/Restrictions: You may use 1000 mg of tylenol every 6-8 hours as needed for pain as well as 600 mg ibuprofen (with food) every 6-8 hours for pain as needed Clinical Impressions Clinical Impression: Hip pain, left, Fall Print Language Print Language: Micronesian Discharge ED Provider: Phoenix Stockton General Adult HPI <Phoenix Stockton MD - Last Filed: 08/16/25 06:56> General Chief complaint: Extremity Injury, Lower Stated complaint: AO 08/15 1500, fell down steps, body pains Time Seen by Provider: 08/16/25 05:44 Mode of Arrival: Ambulatory Source of Information: Patient Description of Symptoms (Recalled from ER Triage Doc. by RN): Patient states she fell down 4 wooden steps yesterday around 1500. States she slid due to to ice. Advised she hit her left hip. States the pain is to severe to sleep. Patient has bruising on the left hip. Normal PMS in all extremites. Patient denies hitting her head, or LOC. Rates pain 8/10. History of Present Illness HPI narrative: 45-year-old female presents to the ER complaining of left hip pain. She states yesterday she fell down her 4 steps from her front porch 14 hours prior to arrival. Patient reports she bounced on her bottom and left hip on the way down. She states she has been able to tolerate the pain except tonight it kept her up most of the night so she came to the ER for evaluation. She has been taking ibuprofen. She was independently ambulatory into the ER. Denies numbness, tingling, or weakness. She did not strike anything else on her body, has no pain elsewhere, specifically did not strike her head or lose consciousness, does not take blood thinners. Patient has a history of osteoarthritis in the left hip. She does report a bruise on the left hip. Full range of motion of the left hip. No other complaints or concerns. Related Data Previous Rx's ?Medication ?Instructions ?Recorded amoxicillin 875 mg-potassium 1 tab PO BID 5 days #10 tabs 11/11/23 clavulanate 125 mg tablet prednisone 20 mg tablet 40 mg (2 x 20 mg) PO DAILY 5 days 11/11/23 #10 tabs Allergies Allergy/AdvReac Type Severity Reaction Status Date / Time No Known Allergies Allergy Verified 11/11/23 06:58 PFS <Phoenix Stockton MD - Last Filed: 08/16/25 06:56> PENDING SALE TO [facility] Disclaimer: The information contained in this section may have been updated after the patient was seen, as this information can be updated by other users. Social History (Updated 11/11/23 @ 08:24 by Te Rose MD) Smoking Status: Current every day smoker alcohol intake: never current occupational status: employed Travel in the last 8 weeks?: None Have you lived/traveled outside [place] in past 30 days?: No Contact w/someone who lives/traveled outside US past 30 days?: No Exposure to someone with infectious disease in past 14 days?: No Do you have a fever (greater than 100.4 F or 38 C)?: No Have you tested positive for COVID-19?: No Exposed to someone with COVID-19 in past 14 days?: No Do you have a sore throat?: No Do you have a cough?: No Do you have any weakness?: No Do you have any diarrhea?: No Are you experiencing any unusual bleeding?: No Do you have any muscle aches/pain?: No Do you have any abdominal pain?: No Are you experiencing loss of taste or smell?: No <Phoenix Stockton MD - Last Filed: 08/16/25 06:56> ROS Obtained: Yes Systems reviewed as appropriate & no additional complaints except as documented Per HPI Physical Exam <Phoenix Stockton MD - Last Filed: 08/16/25 06:56> General General appearance: alert and in no apparent distress Head Head exam: atraumatic and normocephalic Eye Eye exam: Present PERRL and EOMI ENT ENT exam: Present mucous membranes moist Neck Neck exam: Present normal inspection and full ROM Chest Chest inspection: Present symmetric chest wall rise Respiratory Respiratory exam: Present normal lung sounds bilaterally; Absent respiratory distress, wheezes or stridor Cardiovascular Cardiovascular exam: Present regular rate and normal rhythm Abdominal Exam Abdominal exam: Present soft; Absent distention or tenderness Extremities Exam Extremities exam: Present full ROM, tenderness (Posterior to left hip where there is a 6 cm area of ecchymosis, no palpable hematoma, no deformity or crepitus, neurovascularly intact throughout) and normal capillary refill; Absent edema Back Exam Back 1 view image:  1. Area of ecchymosis posterior to left hip Neurological Exam Neurological exam: Present alert and oriented X3; Absent motor sensory deficit Psychiatric Psychiatric exam: Present normal affect and normal mood Skin Skin exam: Present warm and dry Medical Decision Making <Phoenix Stockton MD - Last Filed: 08/16/25 06:56> Medical Records Medical records reviewed: Yes I reviewed the patient's medical records. Screening: Per USPSTF and CDC recommendations, given the prevalence of disease in our region, it is our hospital?s policy to screen for HIV and viral Hepatitis for all patients aged 18 and over and those with ongoing risk factors. Vincent Inquiry Pt receiving controlled substance: No Vital Signs: 08/16/25 05:41 08/16/25 05:49 08/16/25 06:31 Temperature 98.9 F 98.8 F Temperature Source Oral Oral Pulse Rate 83 68 Pulse Rate [Right] 95 H Respiratory Rate 18 18 Blood Pressure 128/73 164/88 H Blood Pressure [Right Arm] 128/87 Blood Pressure Mean 117 Blood Pressure Mean [Right Arm] 100 02 Sat by Pulse Oximetry 98 98 96 Oxygen Delivery Method Room Air Room Air 08/16/25 07:01 Temperature 98.8 F Temperature Source Oral Pulse Rate 78 Pulse Rate [Right] Respiratory Rate 18 Blood Pressure 128/78 Blood Pressure [Right Arm] Blood Pressure Mean Blood Pressure Mean [Right Arm] 02 Sat by Pulse Oximetry Oxygen Delivery Method Room Air Orders (Tests/Meds): ED MEDICATIONS Discontinued Medications Generic Name Dose Route Start Last Admin Trade Name Freq PRN Reason Stop Dose Admin Acetaminophen 1,000 mg 08/16/25 06:49 08/16/25 06:57 Acetaminophen 500mg Tab PO 08/16/25 06:50 1,000 mg ONCE ONE Administration Ketorolac Tromethamine 30 mg 08/16/25 06:49 08/16/25 06:57 Ketorolac 30mg/Ml Vial IM 08/16/25 06:50 30 mg ONCE ONE Administration ORDERS Category Date Time Status Hip XR left minimum 2 views [XR hip LT 2-3V w/pelvis] Exams 08/16/25 05:45 Completed Stat Medical Decision Narrative: In summary, this 45-year-old female with history of of osteoarthritis presents to the emergency department today with left hip pain 14 hours after a fall, ambulatory into the ER. On initial evaluation patient is hemodynamically stable, afebrile, GCS 15, overall well-appearing. On exam patient has an area of ecchymosis just posterior to the left hip but she has full range of motion of the left hip without crepitus or deformity, neurovascularly intact throughout, no hematoma, through physical exam does not demonstrate any other findings of injury. Differential diagnosis includes but is not limited to ecchymosis, soft tissue injury, I have much lower suspicion for hip or pelvis fracture since patient was independently ambulatory into the ER, however with her history of osteoarthritis it is possible that she has degenerative changes such as osteophytes that could have fractured causing pain. Based on these concerns, I ordered x-ray pelvis with left hip views. Toradol and Tylenol administered for symptomatic management. X-ray personally interpreted demonstrates no acute osseous injury, radiology read pending. Patient handed off to Dr. Hanson in stable condition pending radiology read for further management and disposition. <Lane Hanson MD - Last Filed: 08/16/25 07:33> Vital Signs: 08/16/25 05:41 08/16/25 05:49 08/16/25 06:31 Temperature 98.9 F 98.8 F Temperature Source Oral Oral Pulse Rate 83 68 Pulse Rate [Right] 95 H Respiratory Rate 18 18 Blood Pressure 128/73 164/88 H Blood Pressure [Right Arm] 128/87 Blood Pressure Mean 117 Blood Pressure Mean [Right Arm] 100 02 Sat by Pulse Oximetry 98 98 96 Oxygen Delivery Method Room Air Room Air 08/16/25 07:01 Temperature 98.8 F Temperature Source Oral Pulse Rate 78 Pulse Rate [Right] Respiratory Rate 18 Blood Pressure 128/78 Blood Pressure [Right Arm] Blood Pressure Mean Blood Pressure Mean [Right Arm] 02 Sat by Pulse Oximetry Oxygen Delivery Method Room Air Orders (Tests/Meds): ED MEDICATIONS Discontinued Medications Generic Name Dose Route Start Last Admin Trade Name Freq PRN Reason Stop Dose Admin Acetaminophen 1,000 mg 08/16/25 06:49 08/16/25 06:57 Acetaminophen 500mg Tab PO 08/16/25 06:50 1,000 mg ONCE ONE Administration Ketorolac Tromethamine 30 mg 08/16/25 06:49 08/16/25 06:57 Ketorolac 30mg/Ml Vial IM 08/16/25 06:50 30 mg ONCE ONE Administration ORDERS Category Date Time Status Hip XR left minimum 2 views [XR hip LT 2-3V w/pelvis] Exams 08/16/25 05:45 Completed Stat Medical Decision Narrative: In summary, this 45-year-old female with history of of osteoarthritis presents to the emergency department today with left hip pain 14 hours after a fall, ambulatory into the ER. On initial evaluation patient is hemodynamically stable, afebrile, GCS 15, overall well-appearing. On exam patient has an area of ecchymosis just posterior to the left hip but she has full range of motion of the left hip without crepitus or deformity, neurovascularly intact throughout, no hematoma, through physical exam does not demonstrate any other findings of injury. Differential diagnosis includes but is not limited to ecchymosis, soft tissue injury, I have much lower suspicion for hip or pelvis fracture since patient was independently ambulatory into the ER, however with her history of osteoarthritis it is possible that she has degenerative changes such as osteophytes that could have fractured causing pain. Based on these concerns, I ordered x-ray pelvis with left hip views. Toradol and Tylenol administered for symptomatic management. X-ray personally interpreted demonstrates no acute osseous injury, radiology read pending. Patient handed off to Dr. Hanson in stable condition pending radiology read for further management and disposition. Taking over for Dr. Stockton, x-rays personally and independently reviewed and x-ray read reviewed, no acute displaced fracture or dislocation. Patient re-evaluated and remained ambulatory. All questions answered. Recommended tylenol and ibuprofen for arthritis and for bruise pain. Critical Care <Phoenix Stockton MD - Last Filed: 08/16/25 06:56> Critical Care Time Critical Care Time: No
[2025-08-16] MEDS: ACETAMINOPHEN 500MG TAB 1000 MG PO (06:57)
[2025-08-16] MEDS: KETOROLAC 30MG/ML VIAL 30 MG IM (06:57)
[2025-08-16 07:01] VITALS: BP 128/78; PULSE 78; RESP 18; TEMP 37.1; O2SAT 98
== END 2025-08-16 07:38 | disposition home or self-care (01) ==
PROVIDERS: Emergency Provider Emergency Medicine; PCP Emergency Medicine
DX: S70.02XA Contusion of left hip, initial encounter (principal); W10.9XXA Fall (on) (from) unspecified stairs and steps, initial encounter; Y92.008 Other place in unspecified non-institutional (private) residence as the place of occurrence of the external cause; F17.200 Nicotine dependence, unspecified, uncomplicated
CPT/HCPCS: 73502; 96372; 99284; 99285; J1885